=== PATIENT | female | born 1930 | race Caucasian/White ===

== ENCOUNTER → 2016-09-19 | Outpatient (CLI) | payer OTHER ==
[2016-09-19 09:58] LABS: BLOOD UREA NITROGEN 23 mg/dl (7-18); BUN/CREATININE RATIO 32.4 (10-20); CALCIUM 9.1 mg/dl (8.5-10.1); CARBON DIOXIDE 28 mmol/L (21-32); CHLORIDE 105 mmol/L (98-107); CREATININE 0.72 mg/dl (0.60-1.20); GLUCOSE 207 mg/dl (70-99); POTASSIUM 4.3 mmol/L (3.5-5.1); SODIUM 143 mmol/L (136-145)
[2016-09-19 10:25] LABS: ESTIMATED AVERAGE GLUCOSE 214 mg/dl; HA1C FLAG Normal (Normal)
--- NOTE | 2016-09-20 20:52 | CODING QUERY NO DIAGNOSIS ---
TREATMENT RENDERED WITHOUT A DIAGNOSIS 30 To promote full compliance with coding requirements relating to patient care, physician participation is requested in all cases of plant care worker uncertainty. Please assist us with providing a diagnosis/symptom for the test(s) below: A diagnosis/symptom was not documented on your Order. A valid diagnosis/symptom is required to bill all insurances. Please remember that we are unable to code a diagnosis of rule out, probable, possible, questionable, or suspected. DOS 09/19/16 Tests that require a diagnosis: * HEMOGLOBIN A1C DIAGNOSIS: * PARTIAL RENAL PROFILE DIAGNOSIS: *ON YOUR ORDER YOU HAVE DX CODE E11, THAT IS AN INVALID CODE, CAN YOU PLEASE ADD CORRECT DX CODE Provider Signature: Date: Thank you Enriqueta [facility] Information Management Once completed, please kindly fax back to [phone] For questions please call [phone]
== END ==
LOC: C.LABUPHEI 08:53
PROVIDERS: ATTEND Family Medicine
DX: E11.9 Type 2 diabetes mellitus without complications (principal); F02.81 Dementia in other diseases classified elsewhere, unspecified severity, with behavioral disturbance

== ENCOUNTER → 2016-11-12 | Outpatient (CLI) | payer OTHER ==
[2016-11-12 10:37] LABS: HEMATOCRIT 38.3 % (37-47); MEAN CELL VOLUME 92.3 fL (80-100); MEAN CORPUSCULAR HEMOGLOBIN 29.4 pg (25-34); MEAN CORPUSCULAR HGB CONC 31.9 g/dl (32-36); MEAN PLATELET VOLUME 12.1 fL (7.4-10.4); PLATELET COUNT 160 K/uL (130-400); RED BLOOD COUNT 4.15 M/uL (4.2-5.4)
[2016-11-12 10:53] LABS: ESTIMATED AVERAGE GLUCOSE 212 mg/dl; HA1C FLAG Normal (Normal)
[2016-11-12 11:20] LABS: ALB/GLOB RATIO 0.8 (0.9-2); ALT/SGPT 26 U/L (12-78); AST/SGOT 20 U/L (15-37); BLOOD UREA NITROGEN 25 mg/dl (7-18); BUN/CREATININE RATIO 28.5 (10-20); CARBON DIOXIDE 28 mmol/L (21-32); CHLORIDE 107 mmol/L (98-107); CREATININE 0.88 mg/dl (0.60-1.20); GLUCOSE 183 mg/dl (70-99); SODIUM 142 mmol/L (136-145)
[2016-11-12 11:34] LABS: ALKALINE PHOSPHATASE 66 U/L (45-117)
== END ==
LOC: C.LABUPHEI 10:20
PROVIDERS: ATTEND Family Medicine
DX: E11.9 Type 2 diabetes mellitus without complications (principal); I87.309 Chronic venous hypertension (idiopathic) without complications of unspecified lower extremity

== ENCOUNTER → 2016-12-13 | Outpatient (CLI) | payer OTHER ==
[2016-12-13 10:32] LABS: BLOOD UREA NITROGEN 21 mg/dl (7-18); BUN/CREATININE RATIO 21.9 (10-20); CARBON DIOXIDE 30 mmol/L (21-32); CHLORIDE 106 mmol/L (98-107); CREATININE 0.97 mg/dl (0.60-1.20); GLUCOSE 196 mg/dl (70-99); POTASSIUM 4.1 mmol/L (3.5-5.1); SODIUM 143 mmol/L (136-145)
[2016-12-13 10:34] LABS: CALCIUM 9.5 mg/dl (8.5-10.1)
== END ==
LOC: C.LABUPHEI 09:18
PROVIDERS: ATTEND Nurse Practitioner Family
DX: E11.9 Type 2 diabetes mellitus without complications (principal)

== ENCOUNTER → 2017-02-12 | Outpatient (CLI) | payer OTHER ==
[2017-02-12 10:02] LABS: ESTIMATED AVERAGE GLUCOSE 183 mg/dl; HA1C FLAG Normal (Normal)
[2017-02-12 10:03] LABS: ALT/SGPT 29 U/L (12-78); BLOOD UREA NITROGEN 24 mg/dl (7-18); BUN/CREATININE RATIO 25.3 (10-20); CALCIUM 9.3 mg/dl (8.5-10.1); CARBON DIOXIDE 32 mmol/L (21-32); CHLORIDE 106 mmol/L (98-107); CREATININE 0.95 mg/dl (0.60-1.20); GLUCOSE 115 mg/dl (70-99); POTASSIUM 3.9 mmol/L (3.5-5.1); SODIUM 143 mmol/L (136-145)
[2017-02-12 10:05] LABS: HEMATOCRIT 41.1 % (37-47); MEAN CELL VOLUME 91.9 fL (80-100); MEAN CORPUSCULAR HEMOGLOBIN 29.1 pg (25-34); MEAN CORPUSCULAR HGB CONC 31.6 g/dl (32-36); MEAN PLATELET VOLUME 11.7 fL (7.4-10.4); PLATELET COUNT 156 K/uL (130-400); RED BLOOD COUNT 4.47 M/uL (4.2-5.4); WHITE BLOOD COUNT 8.51 K/uL (4.8-10.8)
[2017-02-12 10:06] LABS: ALB/GLOB RATIO 0.9 (0.9-2); ALKALINE PHOSPHATASE 67 U/L (45-117); AST/SGOT 31 U/L (15-37)
[2017-02-12 11:18] LABS: BASO % 0.2 %; BASO ABS # 0.02 K/uL (0-0.2); COMPLETE YES; EOS % 3.3 %; IG% 0.1 %; LYMPH % 53.9 %; LYMPH ABS # 4.59 K/uL (1.2-3.4); MONO % 6.6 %; NEUT % 35.9 %
== END | disposition home or self-care (01) ==
LOC: C.LABUPHEI 08:50
PROVIDERS: ATTEND Family Medicine
DX: E11.9 Type 2 diabetes mellitus without complications (principal)

== ENCOUNTER → 2017-04-13 | Outpatient (CLI) | payer OTHER | LOC: C.LABUPHEI 09:13 | PROVIDERS: ATTEND Nurse Practitioner Family | DX: E11.9 Type 2 diabetes mellitus without complications (principal) ==

== ENCOUNTER → 2017-05-02 | Outpatient (CLI) | payer OTHER ==
[2017-05-02 14:33] LABS: ESTIMATED AVERAGE GLUCOSE 148 mg/dl; HA1C FLAG Normal (Normal)
== END | disposition home or self-care (01) ==
LOC: C.LABUPHEI 09:01
PROVIDERS: ATTEND Nurse Practitioner Family
DX: E11.9 Type 2 diabetes mellitus without complications (principal)

== ENCOUNTER 2018-07-12 15:52 | Inpatient (IN) ==
[2018-07-12] MEDS ORDERED: MoRPHine SULFATE 2 MG/ML CARP IV PRN ×2 (16:02→19:45)
[2018-07-12] MEDS ORDERED: SODIUM CHLORIDE 0.9% 1000ML 1,000 ML IV SCH (16:15)
--- NOTE | 2018-07-12 16:15 | Emergency Department Note ---
Entered by Kyra Howell acting as a scribe for History of Present Illness General Chief complaint: Fall Time Seen by Provider: 07/12/18 15:55 Source: patient History of Present Illness Onset (ago): hour(s) (today ) Location: lower extremity and left Pain Consistency: + now resolved and + other (episode) Quality: + other (fall) Associated symptoms: + other (negative pain in left leg) The patient is a 88 year old female who presents to the Emergency Room with complaints of a fall that occurred today. The patient states that she did not hit her head. Per EMS, the patient was hit by a door and fell to the floor, landing on her left leg. Per EMS, the patient got an X-ray that showed a fracture of the left femur. The patient denies any pain in her left leg. Per EMS , the patient is a resident at [facility]. The patient's history is limited secondary to mental state. Home Medications Home Medications Medication Instructions Recorded Confirmed Type acetaminophen 325 mg PO Q6H PRN 07/12/18 07/12/18 History divalproex [Depakote Sprinkles] 250 mg PO DAILY 07/12/18 07/12/18 History glimepiride [Amaryl] 2 mg PO QAM 07/12/18 07/12/18 History Allergies Allergy/AdvReac Type Severity Reaction Status Date / Time No Known Allergies Allergy Unverified 07/12/18 16:26 Past Med/Surg History Medical History Dementia Family History Other No significant family history Social History Feels Safe at Home: Yes Smoking Status: Unknown if ever smoked Review of Systems See HPI for pertinent positives & negatives. The patient's history/ros was limited secondary to mental state. Physical Exam Vital Signs Vital Signs - 24 hr 07/12/18 16:07 Temperature 37.1 C Temperature Source Oral Sepsis Recent Fever Within 48 Hours No Sepsis New/Unexplained Change in Mental Status No Sepsis Action Taken by Nursing No Action Required Pulse Rate 86 Respiratory Rate 18 Blood Pressure 179/85 H Blood Pressure Mean 116 Blood Pressure Position Lying Pulse Oximetry 96 Oxygen Delivery Method Room Air GENERAL: Patient is in no acute distress. HEENT: No acute trauma, normocephalic atraumatic, mucous membranes moist, no nasal congestion, no scleral icterus. No scalp hematoma. NECK: No stridor, no adenopathy, no meningismus, trachea is midline. No cervical spine tenderness. LUNGS: Clear to auscultation bilaterally, no wheeze, no rhonchi, breath sounds equal. HEART: Without murmurs gallops or rubs, regular rate and rhythm. ABDOMEN: Soft, nontender, bowel sounds positive, no hernias, no peritonitis. EXTREMITIES: Edema to the bilateral lower extremities. Left lower extremity is externally rotated and shortened. Pain with palpation and movement of the left hip. No evidence for neurovascular compromise. NEUROLOGIC: No focal motor deficits. Awake and alert. Confusion noted. Course 1556: Past medical records reviewed. The patient was evaluated in room C5, and a complete history and physical examination were performed. 1738: I checked on the patient and she does not seem to be in pain. 1754: I discussed the case with Karli Arriaga PA-C who will further evaluate the patient. Consultations Consultation #1: I discussed the case with Karli Arriaga PA-C who will further evaluate the patient. Time: 17:54 Administered Medications Sodium Chloride (Nss 1000ml) 1,000 mls @ 150 mls/hr IV .[id number] QUANG Stop: 07/12/18 22:54 Last Admin: 07/12/18 17:23 Dose: 150 mls/hr Medical Decision Making Differential Diagnosis Differential Diagnoses: Hip fracture, femur fracture, pelvis fracture, chest or abdominal trauma, head trauma, cervical spine injury, contusion, and others were considered. Medical Records Attestation: I reviewed the patient's medical records. Home Medications Current Medication List: was personally reviewed by me Laboratory Data Attestation: I reviewed the patient's lab results. Result diagrams: 07/12/18 16:47 07/12/18 16:47 Lab Results 07/12/18 07/12/18 07/12/18 Range/Units 16:47 16:47 16:47 WBC 11.95 H (4.8-10.8) K/uL RBC 4.38 (4.2-5.4) M/uL Hgb 13.2 (12.0-16.0) g/dL Hct 40.8 (37-47) % MCV 93.2 (80-100) fL MCH 30.1 (25-34) pg MCHC 32.4 (32-36) g/dL RDW Std Deviation 45.0 (36.4-46.3) fL RDW Coeff of Elizabeth 13.2 (11.5-14.5) % Plt Count 143 (130-400) K/uL MPV 12.4 H (7.4-10.4) fL Immature Gran % (Auto) 0.3 % Neut % (Auto) 81.3 % Lymph % (Auto) 14.3 % [place] % (Auto) 3.8 % Eos % (Auto) 0.2 % Baso % (Auto) 0.1 % Immature Gran # (Auto) 0.03 H (0.00-0.02) K/uL Neut # (Auto) 9.73 H (1.4-6.5) K/uL Lymph # (Auto) 1.71 (1.2-3.4) K/uL [place] # (Auto) 0.45 (0.11-0.59) K/uL Eos # (Auto) 0.02 (0-0.5) K/uL Baso # (Auto) 0.01 (0-0.2) K/uL PT 9.8 (9.0-12.0) Seconds INR 1.0 (0.9-1.1) APTT 24.8 (21.0-31.0) Seconds PTT Ratio 1.0 Sodium 139 (136-145) mmol/L Potassium 4.4 (3.5-5.1) mmol/L Chloride 104 (98-107) mmol/L Carbon Dioxide 30 (21-32) mmol/L Anion Gap 5.0 (3-11) BUN 30 H (7-18) mg/dl Creatinine 0.91 (0.6-1.2) mg/dl Est Cr Clr Drug Dosing 42.4 ml/min Est GFR ( Amer) 65.3 Est GFR (Non-Af Amer) 56.3 BUN/Creatinine Ratio 32.8 H (10-20) Glucose 167 H (70-99) mg/dl Calcium 9.0 (8.5-10.1) mg/dl Blood Type Antibody Screen 07/12/18 Range/Units 16:50 WBC (4.8-10.8) K/uL RBC (4.2-5.4) M/uL Hgb (12.0-16.0) g/dL Hct (37-47) % MCV (80-100) fL MCH (25-34) pg MCHC (32-36) g/dL RDW Std Deviation (36.4-46.3) fL RDW Coeff of Elizabeth (11.5-14.5) % Plt Count (130-400) K/uL MPV (7.4-10.4) fL Immature Gran % (Auto) % Neut % (Auto) % Lymph % (Auto) % [place] % (Auto) % Eos % (Auto) % Baso % (Auto) % Immature Gran # (Auto) (0.00-0.02) K/uL Neut # (Auto) (1.4-6.5) K/uL Lymph # (Auto) (1.2-3.4) K/uL [place] # (Auto) (0.11-0.59) K/uL Eos # (Auto) (0-0.5) K/uL Baso # (Auto) (0-0.2) K/uL PT (9.0-12.0) Seconds INR (0.9-1.1) APTT (21.0-31.0) Seconds PTT Ratio Sodium (136-145) mmol/L Potassium (3.5-5.1) mmol/L Chloride (98-107) mmol/L Carbon Dioxide (21-32) mmol/L Anion Gap (3-11) BUN (7-18) mg/dl Creatinine (0.6-1.2) mg/dl Est Cr Clr Drug Dosing ml/min Est GFR ( Amer) Est GFR (Non-Af Amer) BUN/Creatinine Ratio (10-20) Glucose (70-99) mg/dl Calcium (8.5-10.1) mg/dl Blood Type O Positive Antibody Screen NEGATIVE Imaging Data Radiologist's Impression: Radiology results as stated below per my review and the radiologist's interpretation: XR chest 1V portable CLINICAL HISTORY: 88 years-old Female presenting with fall, hip fx. TECHNIQUE: Portable semiupright AP view of the chest was obtained. COMPARISON: None. FINDINGS: Surgical clips noted in the right axilla. Atherosclerosis of the aortic arch. Top normal cardiac size. Mitral annular calcification may be present. Coarsened lung markings. Mild pulmonary vessel prominence. Minimal basilar opacities. No pleural effusion or pneumothorax. Degenerative changes of the thoracic spine. Upper abdomen normal. IMPRESSION: 1. Minimal basilar opacities likely atelectasis or scarring. No convincing evidence of acute cardiopulmonary disease. Electronically signed by: Ollie White M.D. 07/12/2018 5:16 PM XR hip LT 2-3V w pelvis CLINICAL HISTORY: 88 years-old Female presenting with fall, hip pain. TECHNIQUE: Single frontal view of the pelvis and frontal and crosstable lateral views of the left hip were obtained. COMPARISON: None. FINDINGS: Subcapital fracture of the left femoral neck with comminution and significant proximal displacement of the distal fracture fragment. There is also significant anterior displacement of the distal fracture fragment. The left femoral head remains congruent in the acetabulum. Sacral iliac joints, pubic symphysis, and right hip joint congruent. Degenerative changes of the lower lumbar spine. Bony pelvis intact though osteopenia is suspected. Right femoral neck grossly intact. No advanced degenerative changes of the hips. IMPRESSION: Foreshortened and comminuted subcapital fracture of the left femoral neck. Electronically signed by: Ollie White M.D. 07/12/2018 5:18 PM ECG Data Attestation: I personally reviewed and interpreted this ECG as follows: Indication: other (fall) Rate (beats per minute): 77 Rhythm: sinus rhythm Findings: + PVC; no ST elevation Blood Pressure Blood Pressure Findings: Elevated blood pressure Blood Pressure Disposition: further management by hospitalist NAMITA Narrative There is a very mild leukocytosis, this could be consistent with infection or just her pain. No worrisome anemia. No significant electrolyte abnormality or kidney failure. No coagulopathy. Chest film does not show pneumonia or CHF. I do not see any evidence for rib fracture. Pelvis and left hip films show a subcapital left hip fracture, no pelvic fracture. EKG shows a sinus rhythm with PVCs, no acute ischemia. On exam, I could not find evidence clinically for injury to the head, neck, chest, abdomen or upper extremities. The patient received IV saline for hydration. She received IV morphine as needed for pain. She seems comfortable. The patient will require a hospital stay for this fracture. Orthopedics will need to be consulted. I did speak to the patient about her findings, there was no family at the bedside. I spoke with case management. The on-call hospitalist was consulted. Impression & Plan Closed fracture of left hip, Fall Discharge Plan Visit Data Chief Complaint: Fall ED Provider: Juan Antonio Hurt Discharge Problem: Closed fracture of left hip, Fall Forms Stand Alone Forms: My [facility] [address] Prescriptions Prescriptions: No Action acetaminophen 325 mg Tablet 325 mg PO Q6H PRN (Reason: Pain) RF: 0 glimepiride [Amaryl] 2 mg Tablet 2 mg PO QAM RF: 0 divalproex [Depakote Sprinkles] 125 mg Capsule, Delayed Rel Sprinkle 250 mg PO DAILY RF: 0 The scribe's documentation has been prepared under my direction and personally reviewed by me in its entirety. I confirm that the note above accurately reflects all work, treatment, procedures, and medical decision making performed by me.
[2018-07-12 17:07] LABS: Basophils # (auto) 0.01 K/uL (0-0.2); Basophils % (auto) 0.1 %; Eosinophils # (auto) 0.02 K/uL (0-0.5); Eosinophils % (auto) 0.2 %; Hematocrit (blood only) 40.8 % (37-47); Hemoglobin 13.2 g/dL (12.0-16.0); Immature Granulocytes # (auto) 0.03 K/uL (0.00-0.02); Immature Granulocytes % (auto) 0.3 %; Lymphocytes # (auto) 1.71 K/uL (1.2-3.4); Lymphocytes % (auto) 14.3 %; Mean Corpuscular Hgb Conc 32.4 g/dL (32-36); Mean Corpuscular Volume 93.2 fL (80-100); Mean Platelet Volume 12.4 fL (7.4-10.4); Monocytes # (auto) 0.45 K/uL (0.11-0.59); Monocytes % (auto) 3.8 %; Neutrophils # (auto) 9.73 K/uL (1.4-6.5); Neutrophils % (auto) 81.3 %; Platelet Count 143 K/uL (130-400); RDW Coefficient of Variation 13.2 % (11.5-14.5); Red Blood Count 4.38 M/uL (4.2-5.4); White Blood Count 11.95 K/uL (4.8-10.8)
[2018-07-12 17:16] LABS: Partial Thromboplastin Time 24.8 Seconds (21.0-31.0); Prothrombin Time 9.8 Seconds (9.0-12.0)
--- NOTE | 2018-07-12 17:17 | XRay Report ---
XR chest 1V portable CLINICAL HISTORY: 88 years-old Female presenting with fall, hip fx. TECHNIQUE: Portable semiupright AP view of the chest was obtained. COMPARISON: None. FINDINGS: Surgical clips noted in the right axilla. Atherosclerosis of the aortic arch. Top normal cardiac size . Mitral annular calcification may be present. Coarsened lung markings. Mild pulmonary vessel promine nce. Minimal basilar opacities. No pleural effusion or pneumothorax. Degenerative changes of the thor acic spine. Upper abdomen normal. IMPRESSION: 1. Minimal basilar opacities likely atelectasis or scarring. No convincing evidence of acute cardiop ulmonary disease. Electronically signed by: Ollie Whiet M.D. 07/12/2018 5:16 PM
[2018-07-12 17:19] LABS: BUN Creatinine Ratio 32.8 (10-20); Creatinine Clr Calc Pharmacy 42.4 ml/min; Est GFR (African American) 65.3; Est GFR (Non-African American) 56.3; Potassium 4.4 mmol/L (3.5-5.1)
--- NOTE | 2018-07-12 17:19 | XRay Report ---
XR hip LT 2-3V w pelvis CLINICAL HISTORY: 88 years-old Female presenting with fall, hip pain. TECHNIQUE: Single frontal view of the pelvis and frontal and crosstable lateral views of the left hip were obtained. COMPARISON: None. FINDINGS: Subcapital fracture of the left femoral neck with comminution and significant proximal displacement o f the distal fracture fragment. There is also significant anterior displacement of the distal fractur e fragment. The left femoral head remains congruent in the acetabulum. Sacral iliac joints, pubic symphysis, and right hip joint congruent. Degenerative changes of the lowe r lumbar spine. Bony pelvis intact though osteopenia is suspected. Right femoral neck grossly intact. No advanced degenerative changes of the hips. IMPRESSION: Foreshortened and comminuted subcapital fracture of the left femoral neck. Electronically signed by: Ollie White M.D. 07/12/2018 5:18 PM
[2018-07-12 18:39] LABS: Appearance Urine Turbid (Clear); Bacteria Urine Automated Negative (Negative); Bilirubin Urine Negative (Negative); Cast Urine Automated 0 /lpf (0-5); Color Urine Yellow; Glucose Urine UA Negative (Negative); Ketones Urine Trace (Negative); Leukocyte Esterase Urine Negative (Negative); Nitrite Urine Negative (Negative); Protein Urine Negative (Negative); Urobilinogen Urine Negative (Negative); WBC Urine Automated 0 /hpf (0-5); pH Urine 7.5 (4.5-7.5)
--- NOTE | 2018-07-12 18:58 | History & Physical Report ---
Date of Service July 12, 2018 Assessment & Plan (1) Closed fracture of left hip: This is an 88-year-old female with a PMH of dementia and type 2 diabetes who presents from [facility] after a fall this afternoon and was found to have a left femoral neck fracture. -Minimal pain. Scheduled IV Tylenol and IV morphine as needed -Left hip/pelvis XR with foreshortened and comminuted subcapital fracture of the left femoral neck -Walks with a walker at baseline -Keep n.p.o. overnight with maintenance fluids -Preop antibiotics, bedrest, repositioning and tai catheter ordered per geriatric hip protocol -EKG with sinus rhythm with PVCs, LAD. No acute ST changes. Chest x-ray without any acute cardiopulmonary changes -Patient denies cardiac history, but is an unreliable historian. Order 2D echo (none on record) -Consults for orthopedics and anesthesia placed (2) Fall: (3) Type 2 diabetes mellitus: No recent A1c. Ordered. -Hold home glimepiride -Sliding scale insulin if needed but will be n.p.o. overnight -BSG checks before meals and at bedtime (4) Dementia: Significant baseline of dementia. Oriented to self only -Continue Depakote Sprinkles DVT Ppx: SCDs Code status: DNR per POLST form sent by [facility] PCP: Adria Dispo: Admitted to med/surg. Discharge planning ordered. Patient seen in collaboration with Dr. Zapata. Please see addendum. History of Present Illness Chief Complaint: Hip fracture Primary Care Provider: Javier Covington This is an 88-year-old female with a PMH of dementia and type 2 diabetes who presents from [facility] after a fall this afternoon. Patient was reportedly walking to bathroom with a walker when a door shut on her and she fell onto her left side. Denies any head trauma. There was concern for hip fracture so patient was sent to ED for further evaluation. Left hip/pelvis x-ray reveals Foreshortened and comminuted subcapital fracture of the left femoral neck. Patient has minimal pain. Presence of dementia, so HPI and ROS are limited. The only daily medications patient is on are glimepiride for diabetes and Depakote sprinkles for dementia. Denies any history of cardiovascular disease. Reports history of neck surgery. No former admissions at [facility]. Is followed by Dr. Covignton at [facility]. Patient is a DNR per POLST form. Denies fever, chills, headache, chest pain, shortness of breath, abdominal pain, dysuria, diarrhea or constipation. Allergies Allergy/AdvReac Type Severity Reaction Status Date / Time No Known Allergies Allergy Unverified 07/12/18 16:26 Home Medications Home Medications Medication Instructions Recorded Confirmed Type acetaminophen 325 mg PO Q6H PRN 07/12/18 07/12/18 History divalproex [Depakote Sprinkles] 250 mg PO DAILY 07/12/18 07/12/18 History glimepiride [Amaryl] 2 mg PO QAM 07/12/18 07/12/18 History Past Med/Surg History Medical History Dementia (Chronic) Type 2 diabetes mellitus (Chronic) Dementia Surgical History History of neck surgery (Resolved) Family History Other No significant family history Social History Current Living Situation: Retirement Other Information That Helps Us Care for You: No Feels Safe at Home: Declines to Answer Smoking Status: Unknown if ever smoked Hx Alcohol Use: No Hx Substance Use: No Beliefs That Will Affect Care: None Communication Ability: Impaired Review of Systems All systems reviewed & are unremarkable except as noted in HPI & below Physical Exam 2 Vital Signs (Past 24 Hours): Last Vital Signs Temp 37.1 C 07/12/18 16:07 Pulse 99 H 07/12/18 18:40 Resp 18 07/12/18 18:40 BP 162/88 H 07/12/18 18:40 Pulse Ox 98 07/12/18 18:40 Physical Exam: General Appearance: WD/WN, no apparent distress. Pleasantly confused Head: normocephalic, atraumatic Eyes: normal inspection, PERRL, EOMI ENT: hearing grossly normal, pharynx normal (moist mucous membranes) Neck: supple, no JVD, no adenopathy Respiratory/Chest: lungs clear to auscultation. No wheezes, rales or rhonci. No respiratory distress or accessory muscle use Cardiovascular: regular rate, rhythm, no murmur, normal peripheral pulses Abdomen/GI: normal bowel sounds, soft, non-tender to palpation Extremities/Musculoskelatal: Left lower extremity is externally rotated and shortened. Pain with palpation and movement of the left hip. Left sided distal pulses are intact. No calf tenderness, normal capillary refill, 1+ BLE pitting edema Neurologic/Psych: alert, normal mood/affect, oriented x person only Skin: normal color, warm/dry Results & Data Laboratory Results Short CBC 07/12/18 Range/Units 16:47 WBC 11.95 H (4.8-10.8) K/uL Hgb 13.2 (12.0-16.0) g/dL Hct 40.8 (37-47) % Plt Count 143 (130-400) K/uL BMP 07/12/18 16:47 Sodium 139 Potassium 4.4 Chloride 104 Carbon Dioxide 30 BUN 30 H Creatinine 0.91 Glucose 167 H Calcium 9.0 Urine 07/12/18 Range/Units 18:25 Urine Color Yellow Urine Appearance Turbid H (Clear) Urine pH 7.5 (4.5-7.5) Ur Specific [place] 1.020 (1.000-1.030) Urine Protein Negative (Negative) Urine Glucose (UA) Negative (Negative) Diagnostic Findings CXR: IMPRESSION: 1. Minimal basilar opacities likely atelectasis or scarring. No convincing evidence of acute cardiopulmonary disease. L hip/pelvis XR: IMPRESSION: Foreshortened and comminuted subcapital fracture of the left femoral neck. Code Status & VTE Plan Code Status DNR per POLST form VTE Prophylaxis Plan VTE Prophylaxis will be ordered: Yes Supervising Physician Co-Signing Physician Notes Pt was seen and examined. Agreed with Karli GARCIA exam, assessment and Plan. 88- year-old female with a PMH of dementia and type 2 diabetes was sent from [facility] after a fall. Pelvis xray showed Foreshortened and comminuted subcapital fracture of the left femoral neck. Currently pt denies any pain. Will get a routine echo. Surgery consult and keep NPO after midnight for possible surgery in am. MD Jodi _ (1) Fall Encounter type: initial encounter Qualified Code(s): W19.XXXA - Unspecified fall, initial encounter (2) Closed fracture of left hip Encounter type: initial encounter Fracture healing: Qualified Code(s): S72.002A - Fracture of unspecified part of neck of left femur, initial encounter for closed fracture
[2018-07-12] MEDS ORDERED: BISACODYL 10 MG SUPP PR PRN (19:45)
[2018-07-12] MEDS ORDERED: ONDANSETRON INJ 2 MG/ML 2 ML VIAL IV PRN (19:45)
[2018-07-12] MEDS ORDERED: ACETAMINOPHEN 1,000 MG/100 ML VIAL IV PRN (19:45)
[2018-07-12] MEDS ORDERED: SOD PHOSPHATE/SOD BIPHOSPHATE ENEMA 132 ML BTL PR PRN (19:45)
[2018-07-12] MEDS ORDERED: MAGNESIUM HYDROXIDE SUSP 30 ML UDC PO PRN (19:45)
[2018-07-12] MEDS ORDERED: NALOXONE HCL 0.4 MG/1 ML VIAL/CARP IV PRN (19:45)
[2018-07-12] MEDS ORDERED: POLYETHYLENE (MIRALAX) 17 GM PACK PO PRN (19:45)
[2018-07-12] MEDS ORDERED: GLUCAGON FOR INJ 1 MG VIAL SQ PRN (20:24)
[2018-07-12] MEDS ORDERED: CARBOHYDRATES FOR HYPOGLYCEMIA PO PRN (20:24)
[2018-07-12] MEDS ORDERED: GLUCOSE 40% GEL 15 GM TUBE PO PRN (20:24)
[2018-07-12] MEDS ORDERED: GLUCOSE 10 TABS/TUBE PO PRN (20:24)
[2018-07-12] MEDS ORDERED: DEXTROSE 50% 50 ML SYRINGE IV PRN (20:24)
[2018-07-12] MEDS: LACTATED RINGER'S 1,000 ML IV SCH (20:49)
[2018-07-12] MEDS ORDERED: INFLUENZA ADMINISTRATION CHARGE ONE (21:00)
[2018-07-12] MEDS ORDERED: PNEUMOCOCCAL POLYSACCHARIDES 25 MCG/0.5 ML VIAL/SYR IM ONE (21:00)
[2018-07-12] MEDS ORDERED: PNEUMOCOCCAL ADMINISTRATION CHARGE ONE (21:00)
[2018-07-12] MEDS ORDERED: INFLUENZA VACCINE HIGH DOSE 65+ 0.5 ML SYR IM ONE (21:00)
[2018-07-12] MEDS: DOCUSATE SODIUM/SENNA 50/8.6MG TAB PO SCH (21:51)
[2018-07-12] MEDS: INSULIN ASPART 100 UNITS/ML 3 ML PEN SC SCH (21:52)
[2018-07-13] MEDS ORDERED: CEFAZOLIN 2000MG 2,000 MG/15 ML SYR IV SCH (06:00)
--- NOTE | 2018-07-13 09:14 | History & Physical Report ---
Date of Service July 13, 2018 Assessment & Plan (1) Fracture of femoral neck, left, closed: Plan for left hip hemiarthroplasty later today with Dr. Vicente. Consent was placed on the chart. The patient has a family member that is POA for her and the name and phone number are in the chart for Dr. Vicente to obtain consent. Pain control until the procedure. D/C planning per medicine but will probably return to SNF. History of Present Illness Chief Complaint: left hip pain after fall Primary Care Provider: Javier Covington The patient states she was hit by a door and fell onto her left side. Her history is limited secondary to her dementia. She was brought to [facility] ER where x -rays were performed and noted a left hip femoral neck fracture. She was admitted and is now being set up for surgical treatment. Allergies Allergy/AdvReac Type Severity Reaction Status Date / Time No Known Allergies Allergy Unverified 07/12/18 16:26 Home Medications Home Medications Medication Instructions Recorded Confirmed Type acetaminophen 325 mg PO Q6H PRN 07/12/18 07/12/18 History divalproex [Depakote Sprinkles] 250 mg PO DAILY 07/12/18 07/12/18 History glimepiride [Amaryl] 2 mg PO QAM 07/12/18 07/12/18 History Past Med/Surg History Medical History Dementia (Chronic) Type 2 diabetes mellitus (Chronic) Dementia Surgical History History of neck surgery (Resolved) Family History Other No significant family history Social History Current Living Situation: Care Home Other Information That Helps Us Care for You: No Feels Safe at Home: Declines to Answer Smoking Status: Unknown if ever smoked Hx Alcohol Use: No Hx Substance Use: No Beliefs That Will Affect Care: None Preferred Language: [place] Communication Ability: Effective Communication Ability Comment: history dementia,follows some commands/choice Blast Furnace 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 No ROM or strength testing performed because of known fx. NV intact LLE. Neurologic: + confused Psychiatric: Patient is alert, lying in bed. Speech is normal but appears to be confused and she is unaware of her left hip injury. Results & Data Medications Administered Lactated Ringer's (Lr) 1,000 mls @ 80 mls/hr IV .[id number] [facility] Stop: 08/11/18 19:44 Last Admin: 07/12/18 20:49 Dose: 80 mls/hr Acetaminophen (Ofirmev) 1,000 mg in 100 mls @ 400 mls/hr IV Q8H PRN; Protocol PRN Reason: Pain Stop: 08/11/18 19:44 Last Infusion: 07/13/18 00:10 Dose: 0 mls/hr Admin: 07/12/18 23:52 Dose: 400 mls/hr Insulin Aspart (Novolog Flexpen) 0 units SC ACHS [facility] Stop: 08/11/18 20:59 Last Admin: 07/12/18 21:52 Dose: Not Given Senna/Docusate Sodium (Senokot S) 2 tab PO HS [facility] Stop: 08/11/18 20:59 Last Admin: 07/12/18 21:51 Dose: 2 tab Code Status & VTE Plan VTE Prophylaxis Plan VTE Prophylaxis will be ordered: Yes
[2018-07-13] MEDS: LACTATED RINGER'S 1,000 ML IV SCH ×2 (09:42→20:55)
[2018-07-13] MEDS: DIVALPROEX SODIUM SPRINKLE 125 MG CAP PO SCH (09:43)
[2018-07-13] MEDS: INSULIN ASPART 100 UNITS/ML 3 ML PEN SC SCH ×3 (10:03→17:54)
--- NOTE | 2018-07-13 10:58 | History & Physical Bridge Note ---
Date of Service July 13, 2018 History & Physical Bridge Note I have examined the patient, reviewed the History & Physical and in the interval since the performance of the History & Physical I have noted the following changes of clinical significance: no changes noted
[2018-07-13] MEDS ORDERED: MIDAZOLAM HCL 1 MG/ML 2ML VIAL ONE (11:17)
[2018-07-13] MEDS ORDERED: fentaNYL citrate 100 MCG/2 ML VIAL ONE ×2 (11:17→12:18)
[2018-07-13] MEDS ORDERED: PROPOFOL IV EMULSION 10 MG/ML 20 ML VIAL IV ONE ×2 (11:18)
[2018-07-13] MEDS ORDERED: ONDANSETRON INJ 2 MG/ML 2 ML VIAL ONE (11:18)
[2018-07-13] MEDS ORDERED: SUCCINYLCHOLINE CHLORIDE 20 MG/ML 10 ML VIAL ONE (11:18)
--- NOTE | 2018-07-13 11:26 | Anesthesiology Consultation ---
Date of Service July 13, 2018 Assessment & Plan Chart Review Chart Review: Acceptable Risk for Surgery Consults Requested none ASA ASA4 Proposed Anesthesia Anesthesia Type: General Anesthesia Line Insertion: Arterial line Risk / Benefits Reviewed With: PT / POA / Parent / Guardian, Accepts Plan and Informed Consent Obtained NPO Date Last Intake of Fluids: 07/12/18 Time Last Intake of Fluids: 22:00 Last Intake of Fluids Comment: sip of water with pill Date Last Intake of Solids: 07/12/18 Time Last Intake of Solids: 22:00 History Surgery Operation Date: 07/13/18 09:30 Proposed Procedures p Bipolar Hip Prosthesis(Left) - Troy Vicente MD Height/Weight Height: 5 ft 4 in Weight: 75 kg Allergies Allergy/AdvReac Type Severity Reaction Status Date / Time No Known Allergies Allergy Unverified 07/12/18 16:26 Medications Home Medications Medication Instructions Recorded Confirmed Last Taken acetaminophen 325 mg PO Q6H PRN 07/12/18 07/12/18 Unknown divalproex [Depakote Sprinkles] 250 mg PO DAILY 07/12/18 07/12/18 Unknown glimepiride [Amaryl] 2 mg PO QAM 07/12/18 07/12/18 Unknown Active Medications Generic Name Dose Route Start Last Admin Trade Name Freq PRN Reason Stop Dose Admin Divalproex Sodium 250 mg 07/13/18 09:00 07/13/18 09:43 Depakote Sprinkle PO 08/12/18 08:59 250 mg DAILY QUANG Administration Lactated Ringer's 1,000 mls @ 80 mls/hr 07/12/18 19:45 07/13/18 09:42 Lr IV 08/11/18 19:44 80 mls/hr .[id number] QUANG Administration Acetaminophen 1,000 mg in 100 mls @ 400 mls/hr 07/12/18 19:45 07/13/18 00:10 Ofirmev IV 08/11/18 19:44 Infused Q8H PRN Infusion Pain Protocol Senna/Docusate Sodium 2 tab 07/12/18 21:00 07/12/18 21:51 Senokot S PO 08/11/18 20:59 2 tab HS QUANG Administration Beta Adi Beta Adi Taken Within 24 Hours: No Past Medical History Medical History Dementia (Chronic) Type 2 diabetes mellitus (Chronic) Dementia Past Family History Family History Other No significant family history Past Surgical History Surgical History History of neck surgery (Resolved) Past Anesthesia History No Hx of Anesthesia Complications and No Family Hx of Anesthesia Complications History of PONV No Motion Sickness Screening History of Motion Sickness: No Social History Smoking Status: Unknown if ever smoked Do You Dip or Chew Tobacco: No Hx Alcohol Use: No Hx Substance Use: No Exercise / Class Metabolic Activity III < 4 Walking/Shop/Light housework Physical Exam Vital Signs Last Vital Signs Temp 37.7 C H 07/13/18 07:10 Pulse 83 07/13/18 07:10 Resp 18 07/13/18 07:10 BP 145/65 H 07/13/18 07:10 Pulse Ox 94 07/13/18 07:10 ENMT Mouth: + poor dentition; not edentulous Thyromental Distance: < 3.5 Finger Breadths Mallampati Class: II Neck normal visual inspection and trachea midline; neck extension not limited Respiratory normal respiratory effort Auscultation: lungs clear to auscultation bilaterally Cardiovascular Rate/Rhythm: regular rate and regular rhythm Heart Sounds: + murmur (at apex 2/6) Vessels: no carotid bruit Neurologic + does not move all extremities Motor/Sensory: no sensory deficit Psychiatric Orientation: alert; + not oriented x 3 (dementia) Testing Electrocardiogram Date: 07/12/18 Findings: + NSR @ (at 82 w/PSVC's;LAD;?age septal SD) Chest X-Ray Date: 07/12/18 Findings: + NAD and + atherosclerosis of thoracic aorta Echocardiogram Date: 07/13/18 EF: >70 LV Function: normal RWMA: + none Other Findings: + diastolic dysfunction (Grade 2) Valvular Disease: + MS (mod.) Laboratory Results 07/12/18 16:47 07/12/18 16:47 Blood Type O Positive 07/12/18 16:50 Antibody Screen NEGATIVE 07/12/18 16:50 PT 9.8 Seconds (9.0-12.0) 07/12/18 16:47 INR 1.0 (0.9-1.1) 07/12/18 16:47 APTT 24.8 Seconds (21.0-31.0) 07/12/18 16:47 Urine Color Yellow 07/12/18 18:25 Urine Appearance Turbid (Clear) H 07/12/18 18:25 Urine pH 7.5 (4.5-7.5) 07/12/18 18:25 Ur Specific [place] 1.020 (1.000-1.030) 07/12/18 18:25 Urine Protein Negative (Negative) 07/12/18 18:25 Urine Glucose (UA) Negative (Negative) 07/12/18 18: Urine Ketones Trace (Negative) H 07/12/18 18:25 Urine Nitrite Negative (Negative) 07/12/18 18:25 Ur Leukocyte Esterase Negative (Negative) 07/12/18 18:25 Urine WBC (Auto) 0 /hpf (0-5) 07/12/18 18:25 Urine RBC (Auto) 0-4 /hpf (0-4) 07/12/18 18:25 U Hyaline Cast (Auto) 0 /lpf (0-5) 07/12/18 18:25 U Epithel Cells (Auto) 5-10 /lpf (0-5) H 07/12/18 18:25 Urine Bacteria (Auto) Negative (Negative) 07/12/18 18:25 07/13/18 09:39 POC Glucose 112 H
[2018-07-13] MEDS ORDERED: ROPIVACAINE 0.5% HCL/PF 150 MG, BUPIVACAINE 0.5% MPF 30 ML, EPINEPHrine 30MG/30ML (OR U... INFIL SCH (12:00)
[2018-07-13] MEDS ORDERED: POVIDONE-IODINE OP SOLN 30 ML BTL ONE (12:02)
[2018-07-13] MEDS ORDERED: BACITRACIN INJ 50,000 UNIT VIAL ONE (12:02)
[2018-07-13] MEDS ORDERED: NALOXONE HCL 0.4 MG/1 ML VIAL/CARP IV PRN (12:46)
[2018-07-13] MEDS ORDERED: fentaNYL citrate 100 MCG/2 ML VIAL IV PRN (12:46)
[2018-07-13] MEDS ORDERED: FLUMAZENIL 0.1 MG/1 ML 10 ML VIAL IV PRN (12:46)
[2018-07-13] MEDS ORDERED: ATROPINE SULFATE 0.1 MG/ML 5ML SYR IV PRN (12:46)
[2018-07-13] MEDS ORDERED: ONDANSETRON INJ 2 MG/ML 2 ML VIAL IV PRN (12:46)
[2018-07-13] MEDS ORDERED: ePHEDrine sulfate 50 MG/ML AMP IV PRN (12:46)
[2018-07-13] MEDS ORDERED: LABETALOL HCL IV 5 MG/ML 20ML IV PRN (12:46)
--- NOTE | 2018-07-13 14:03 | Post Operative Brief Note ---
Immediate Post Op Note v1 Date of Surgery July 13, 2018 Pre & Post Diagnosis Operation Date: 07/13/18 09:30 Pre-Op Diagnosis: Left Hip Fracture of Femoral Neck Post-Op Diagnosis: Left Hip Fracture of Femoral Neck Procedure Operation Date: 07/13/18 09:30 Actual Procedures p Left Hip Bipolar Hemiarthroplasty, Cemented(Left) - Troy Vicente MD Surgeon Troy Vicente MD Electrical Manufacturing Technician amaury devi Estimated Blood Loss 100 Findings Consistent with Post-Op Diagnosis Specimens femoral head Drains Hemovac Drain Anesthesia Type General Complications none Disposition Accompanied Patient To Recovery: No Disposition: Recovery Room Overlapping Procedure I was immediately available: during the entire case.
[2018-07-13] MEDS ORDERED: TRAMADOL HCL 50 MG TABLET PO PRN (14:28)
[2018-07-13] MEDS ORDERED: OXYCODONE HCL IR 5 MG TAB (IMMEDIATE RELEASE) PO PRN (14:28)
[2018-07-13] MEDS ORDERED: MoRPHine SULFATE 2 MG/ML CARP IV PRN (14:28)
[2018-07-13] MEDS ORDERED: SILVER SULFADIAZINE 1% CR 50 GM JAR EXT PRN (14:28)
--- NOTE | 2018-07-13 15:07 | XRay Report ---
XR hip 1V LT w pelvis CLINICAL HISTORY: Postoperative evaluation. COMPARISON: Pelvis and left hip radiographs July 12, 2018. FINDINGS: Alignment of the total left hip arthroplasty is anatomic. There is no periprosthetic fract ure or unexpected radiopaque foreign body. Drains and skin sarina are present. IMPRESSION: Expected findings following total left hip arthroplasty. Electronically signed by: Jese Mckoy M.D. 07/13/2018 3:05 PM
--- NOTE | 2018-07-13 15:19 | Anesthesiology Progress Note ---
Date of Service July 13, 2018 Anesthesia Post Procedure Vital Signs Vital Signs: Temp Pulse Pulse Pulse Resp BP BP 07/13/18 15:05 83 16 135/69 07/13/18 14:55 36.4 C L 80 16 110/63 07/13/18 14:45 84 16 147/69 H 07/13/18 14:35 79 16 157/78 H 07/13/18 14:29 36.3 C L 81 20 168/64 H 07/13/18 09:30 07/13/18 07:10 37.7 C H 83 18 07/12/18 23:02 37.3 C 91 H 16 152/66 H 07/12/18 20:09 37.5 C 84 18 160/71 H 07/12/18 19:28 122 H 20 07/12/18 18:40 99 H 18 162/88 H 07/12/18 16:07 37.1 C 86 18 179/85 H BP Pulse Ox Pulse Ox 07/13/18 15:05 94 07/13/18 14:55 95 07/13/18 14:45 100 07/13/18 14:35 100 07/13/18 14:29 100 07/13/18 09:30 94 07/13/18 07:10 145/65 H 94 07/12/18 23:02 98 07/12/18 20:09 95 07/12/18 19:28 96 07/12/18 18:40 98 07/12/18 16:07 96 Pain Intensity Left Leg: Pain Intensity: 8 Notes Mental Status: alert / awake / arousable Patient Amnestic to Procedure: Yes Nausea / Vomiting: adequately controlled Pain: adequately controlled Airway Patency, RR, SpO2: stable & adequate BP & HR: stable & adequate Hydration State: stable & adequate Anesthetic Complications: no major complications apparent
[2018-07-13] MEDS: ACETAMINOPHEN 500 MG TAB PO SCH ×2 (16:43→20:59)
[2018-07-13] MEDS ORDERED: Nursing to Pharmacy Communication ONE ×2 (16:45→23:30)
[2018-07-13] MEDS: KETOROLAC TROMETHAMINE 15 MG/ML VIAL IV SCH ×3 (16:51→22:26)
--- NOTE | 2018-07-13 19:23 | Hospitalist Progress Note ---
Date of Service July 13, 2018 Assessment & Plan (1) Closed fracture of left hip: (2) Fall: Mechanical fall Pelvis Xray showed Foreshortened and comminuted subcapital fracture of the left femoral neck. S/D day #0 Left Hip Cemented Bipolar Hemiarthroplasty performed by Dr. Vicente Monitor H/H Fall precaution Incentive spirometry PT/OT eval (3) Type 2 diabetes mellitus: Recent Hba1c 6.7 Continue holding home glimepiride Continue monitor BS (4) Dementia: Significant baseline of dementia. Oriented to self only Continue Depakote Sprinkles DVT Ppx: SCDs Code status: DNR per POLST form sent by [facility] Dispo: Will need placement for rehab Subjective Pt was seen and examined. Lying in bed with no distress with aid at bedside She had surgery done early today Denies any symptoms Physical Exam 2 Vital Signs (Past 24 Hours): Last Vital Signs Temp 36.8 C 07/13/18 18:23 Pulse 70 07/13/18 18:23 Resp 22 07/13/18 18:23 BP 117/71 07/13/18 18:23 Pulse Ox 92 07/13/18 18:23 Physical Exam: General- No acute distress Head- atraumatic Eyes- PERRL, EOMI, ENT- oropharynx clear Neck- supple, no JVD Lungs- clear to auscultation Heart- regular rhythm; no murmur Abdomen- normal bowel sounds, soft, nontender Extremities- no calf tenderness Neuro- alert, oriented, PERRL, EOMI; no facial palsy Skin- warm & dry _ (1) Fall Encounter type: initial encounter Qualified Code(s): W19.XXXA - Unspecified fall, initial encounter (2) Closed fracture of left hip Encounter type: initial encounter Fracture healing: Qualified Code(s): S72.002A - Fracture of unspecified part of neck of left femur, initial encounter for closed fracture
[2018-07-13] MEDS: CEFAZOLIN 2000MG 2,000 MG/15 ML SYR IV SCH (19:42)
[2018-07-13] MEDS: DOCUSATE SODIUM/SENNA 50/8.6MG TAB PO SCH (20:58)
[2018-07-13] MEDS: ASPIRIN 81 MG CHEW PO SCH (21:03)
--- NOTE | 2018-07-13 21:39 | Operative Report ---
DATE OF OPERATION: 07/13/2018 INDICATION FOR PROCEDURE: The patient is an 88-year-old female who suffered a displaced comminuted femoral neck fracture, Garden IV type variety. She does have enough calcar to perform a primary stem. The patient is demented and we had to get consent from her power of urology surgeon, her nephew, Tonny Haley. PREOPERATIVE DIAGNOSIS: Displaced left femoral neck fracture. POSTOPERATIVE DIAGNOSIS: Same. PROCEDURE: Cemented bipolar hemiarthroplasty, left hip. SURGEON: Troy Vicente MD INVENTORY WORKER: Lane Lopez PA-C ANESTHESIA: General. ESTIMATED BLOOD LOSS: 100 mL. DRAINS: Hemovac drains 2. SPECIMENS: Femoral head. COMPLICATIONS: None. OPERATIVE PROCEDURE: The patient was taken to the operating room and anesthetized under general anesthetic. She was placed supine on the operating room table. A sacral pad was placed under her pelvis. We put a kidney rest up underneath the sacral pad for support. A towel was placed to support her lumbar spine. A left foot bump was placed to flex the knee 90 degrees and hip 60 degrees. The bed was placed in Trendelenburg to help drain the pelvis veins, tilted to the right to expose the left hip. Her hip exam demonstrated her leg was short and externally rotated, clearly consistent with a fracture. She has some peripheral edema of both of her legs, about the same. Circulation otherwise intact. The left hip was sterilely prepped and draped in the usual sterile fashion. A lateral Ng-type approach was performed to the left hip. Skin was incised sharply, subcutaneous flaps were elevated. A moderately deep layer of fat was divided down to the fascia. The fascia mae was divided longitudinally and the gluteus rosalia fascia was split proximally. The trochanteric bursa was resected. There was some bruising and some old blood consistent with impaction on the greater trochanter during the fall. Trochanter was intact. The gluteus medius was noted to be intact. Gluteus medius was split between its anterior 40% and posterior 60%. It was reflected off the minimus. The minimus was divided and reflected off the capsule. The capsule was divided and a muscular capsular flap was elevated off the anterior hip. A curvilinear incision was made through the gluteus medius and the upper 2-3 cm of the vastus lateralis was split longitudinally and the muscular capsular flap was elevated to expose the fracture. It was a comminuted neck fracture, mainly posterior with comminuted fracture fragments. I made a femoral neck cut 15 mm proximal to the lesser trochanter. This was made in neutral anteversion. The neck fracture fragments were removed. A corkscrew was used to place into the femoral neck and head. The head was removed. Ligamentum teres was removed. The acetabulum was in good condition. The femoral neck cut made was above just one tiny small area of posterior comminution which was only a few millimeters deep and no further cracks extending distally. After copious irrigation, the femur was exposed with flexion and external rotation. Retractors were placed. I used the MAPPING Accolade cemented hip system. The box osteotome was used followed by the canal reamer, followed by sequential broaches up to a 4, which had satisfactory fit and fill. We did a trial reduction and there was satisfactory jehovah's witness of equal leg lengths and stability through full range of motion. The trial reduction was very stable. This was then redislocated, trials removed, the canal irrigated. A cement restrictor placed distal at the level of the cementing and then after irrigation we placed a tampon in place. Then, the final stem was cemented with Palacos cement. It was a 132-degree neck angle size 4 Accolade C cemented hip stem. We did put a centralizer on the stem, which was a medium 12 mm. After the canal was dried, the stem was cemented in position, held until the cement cured, and then we went ahead and placed on the 26 mm +0 V40 femoral head which was impacted onto the Cabrera taper. The 49 mm diameter head which matched the diameter measured of her femoral head by 26 mm in diameter was then placed and snapped on to the +0 neck, checked for stability and then we reduced this to the acetabulum, verified stability, full range of motion and good soft tissue tension identified. Then we irrigated out the joint with antibiotic solution. We also used a Betadine soak for about 3 minutes while we placed the drains which were brought out laterally. Two drains were placed deep into the joint and then the capsule was repaired with sdvlql-hv-[id number] #1 Vicryl sutures. The minimus was repaired with vbyzmi-kn-mpnel #1 Vicryl sutures. The gluteus medius was repaired with transosseous #5 FiberWire sutures. The minimus was repaired with transosseous #5 FiberWire sutures using Hardeep-Maycol suture technique to tie the FiberWire sutures. Then, the further lateral row soft tissue fixation with sjbujg-ea-icbbn #2 FiberWire was placed in the medius and then the split in the medius was closed with mfkilz-zx-pyoyd #1 Vicryl sutures, split in the vastus lateralis with tarmeg-yl-fyfij #1 Vicryl sutures. The fascia mae was closed with llkgtb-yb-bdkyw #1 Vicryl sutures. Subcutaneous tissue was closed with large #2 Vicryls to close the space, 2-0 Vicryls for subcutaneous tissues, and then sarina on the skin and Silverlon dressing. Drains were placed into a Hemovac. The patient had 100 mL of blood loss. She tolerated the procedure well. Lane Lopez was my first assist. He functioned as first assist throughout the entire procedure. He assisted in retraction, leg positioning, leg traction and he assisted and performed the final closure of the fascia mae, subcutaneous skin, dressing change. We will participate in postoperative care of the patient. I attest to the content of the Intraoperative Record and any orders documented therein. Any exception s are noted below.
[2018-07-14] MEDS: LACTATED RINGER'S 1,000 ML IV SCH ×2 (01:16→13:40)
[2018-07-14] MEDS: KETOROLAC TROMETHAMINE 15 MG/ML VIAL IV SCH ×2 (03:56→08:26)
[2018-07-14] MEDS: CEFAZOLIN 2000MG 2,000 MG/15 ML SYR IV SCH (04:03)
[2018-07-14 06:00] LABS: Estimated Average Glucose 146 mg/dl
[2018-07-14] MEDS: ACETAMINOPHEN 500 MG TAB PO SCH ×4 (06:08→21:27)
[2018-07-14 06:58] LABS: Hematocrit (blood only) 35.6 % (37-47); Hemoglobin 11.4 g/dL (12.0-16.0); Mean Corpuscular Volume 93.4 fL (80-100); Mean Platelet Volume 12.3 fL (7.4-10.4); Platelet Count 112 K/uL (130-400); RDW Coefficient of Variation 13.6 % (11.5-14.5); RDW Standard Deviation 46.3 fL (36.4-46.3); Red Blood Count 3.81 M/uL (4.2-5.4); White Blood Count 12.72 K/uL (4.8-10.8)
[2018-07-14 06:59] LABS: Basophils # (auto) 0.01 K/uL (0-0.2); Basophils % (auto) 0.1 %; Immature Granulocytes # (auto) 0.03 K/uL (0.00-0.02); Immature Granulocytes % (auto) 0.2 %; Lymphocytes # (auto) 1.66 K/uL (1.2-3.4); Lymphocytes % (auto) 13.1 %; Monocytes # (auto) 0.95 K/uL (0.11-0.59); Monocytes % (auto) 7.5 %; Neutrophils # (auto) 10.07 K/uL (1.4-6.5); Neutrophils % (auto) 79.1 %
[2018-07-14 07:01] LABS: RBC Morphology Unremarkable
[2018-07-14 07:05] LABS: Albumin Level 2.5 gm/dl (3.4-5.0); BUN Creatinine Ratio 28.3 (10-20); Calcium 8.2 mg/dl (8.5-10.1); Creatinine Clr Calc Pharmacy 44.8 ml/min; Est GFR (African American) 69.9; Est GFR (Non-African American) 60.3; Potassium 4.3 mmol/L (3.5-5.1)
[2018-07-14 07:06] LABS: Phosphorus 2.9 mg/dl (2.5-4.9)
[2018-07-14] MEDS: DIVALPROEX SODIUM SPRINKLE 125 MG CAP PO SCH (08:25)
--- NOTE | 2018-07-14 08:27 | Anesthesiology Progress Note ---
Date of Service July 14, 2018 Anesthesia Post Procedure Vital Signs Vital Signs: Temp Pulse Pulse Pulse Resp BP BP 07/14/18 06:57 36.8 C 79 14 162/75 H 07/14/18 03:44 36.9 C 77 18 146/75 H 07/14/18 01:17 75 132/76 07/13/18 23:21 36.4 C L 76 18 171/65 H 07/13/18 20:00 07/13/18 18:23 36.8 C 70 22 117/71 07/13/18 17:30 37.0 C 71 22 116/68 07/13/18 16:36 37.1 C 82 22 149/78 H 07/13/18 16:00 37.2 C 82 20 146/75 H 07/13/18 15:05 83 16 135/69 07/13/18 14:55 36.4 C L 80 16 110/63 07/13/18 14:45 84 16 147/69 H 07/13/18 14:35 79 16 157/78 H 07/13/18 14:29 36.3 C L 81 20 168/64 H 07/13/18 09:30 Pulse Ox Pulse Ox 07/14/18 06:57 96 07/14/18 03:44 93 07/14/18 01:17 07/13/18 23:21 96 07/13/18 20:00 92 07/13/18 18:23 92 07/13/18 17:30 91 07/13/18 16:36 92 07/13/18 16:00 91 91 07/13/18 15:05 94 07/13/18 14:55 95 07/13/18 14:45 100 07/13/18 14:35 100 07/13/18 14:29 100 07/13/18 09:30 94 Notes Mental Status: alert / awake / arousable and participated in evaluation Nausea / Vomiting: adequately controlled Pain: adequately controlled Airway Patency, RR, SpO2: stable & adequate BP & HR: stable & adequate Hydration State: stable & adequate
[2018-07-14] MEDS: INSULIN ASPART 100 UNITS/ML 3 ML PEN SC SCH ×4 (08:32→20:42)
[2018-07-14] MEDS: ASPIRIN 81 MG CHEW PO SCH ×3 (11:27→21:27)
--- NOTE | 2018-07-14 11:57 | Orthopedic Progress Note ---
Date of Service July 14, 2018 Assessment & Plan (1) Fracture of femoral neck, left, closed: POD #1, Left hip Bipolar Hemiarthroplasty PT/ OT DVT proph- ASA D/C planning- Rehab vs. SNF As per primary Team. Subjective POD #1, denies sob, cp, n/v. States left hip pain controlled well. Physical Exam 2 Vital Signs (Past 24 Hours): Last Vital Signs Temp 36.8 C 07/14/18 06:57 Pulse 79 07/14/18 06:57 Resp 14 07/14/18 06:57 BP 162/75 H 07/14/18 06:57 Pulse Ox 96 07/14/18 06:57 Physical Exam: Left hip incision c/d/i, no drainage, drain in tact, no calf tenderness, toes and ankle mobile. Patient alert, awake and pleasantly confused.
--- NOTE | 2018-07-14 15:42 | Hospitalist Progress Note ---
Date of Service July 14, 2018 Assessment & Plan (1) Closed fracture of left hip: (2) Fall: Mechanical fall Pelvis Xray showed Foreshortened and comminuted subcapital fracture of the left femoral neck. S/D day #1 Left Hip Cemented Bipolar Hemiarthroplasty performed by Dr. Vicente Hbg 11.4 Fall precaution Incentive spirometry PT/OT eval Pain control (3) Type 2 diabetes mellitus: Recent Hba1c 6.7 Continue holding home glimepiride Continue monitor BS (4) Dementia: Significant baseline of dementia. Oriented to self only Continue Depakote Sprinkles DVT Ppx: SCDs Code status: DNR per POLST form sent by [facility] Dispo: Will need placement for rehab Subjective Pt was seen and examined. Sitting in chair with no distress. Pt said that she feels sad because she is not going to be discharged today. She said that she does not have any pain and does not want to take anything for the pain Denies any chest pain, palpitation, dizziness and SOB Physical Exam 2 Vital Signs (Past 24 Hours): Last Vital Signs Temp 36.4 C L 07/14/18 15:08 Pulse 77 07/14/18 15:08 Resp 18 07/14/18 15:08 BP 149/70 H 07/14/18 15:08 Pulse Ox 98 07/14/18 15:08 Physical Exam: General- No acute distress Head- atraumatic Eyes- PERRL, EOMI, ENT- oropharynx clear Neck- supple, no JVD Lungs- clear to auscultation Heart- regular rhythm; no murmur Abdomen- normal bowel sounds, soft, nontender Extremities- no calf tenderness, Left hip incision with no drainage, drain in tact. Neuro- alert, oriented, PERRL, EOMI; no facial palsy Skin- warm & dry _ (1) Fall Encounter type: initial encounter Qualified Code(s): W19.XXXA - Unspecified fall, initial encounter (2) Closed fracture of left hip Encounter type: initial encounter Fracture healing: Qualified Code(s): S72.002A - Fracture of unspecified part of neck of left femur, initial encounter for closed fracture
[2018-07-14] MEDS: DOCUSATE SODIUM/SENNA 50/8.6MG TAB PO SCH ×2 (20:45→21:27)
[2018-07-15] MEDS: LACTATED RINGER'S 1,000 ML IV SCH ×3 (01:56→23:09)
[2018-07-15] MEDS: ACETAMINOPHEN 500 MG TAB PO SCH ×3 (06:16→21:08)
[2018-07-15 06:35] LABS: Hematocrit (blood only) 33.2 % (37-47); Hemoglobin 10.5 g/dL (12.0-16.0); Mean Corpuscular Hgb Conc 31.6 g/dL (32-36); Mean Corpuscular Volume 94.1 fL (80-100); Mean Platelet Volume 12.7 fL (7.4-10.4); Platelet Count 98 K/uL (130-400); RDW Coefficient of Variation 14.1 % (11.5-14.5); RDW Standard Deviation 48.2 fL (36.4-46.3); Red Blood Count 3.53 M/uL (4.2-5.4); White Blood Count 13.75 K/uL (4.8-10.8)
--- NOTE | 2018-07-15 07:04 | Orthopedic Progress Note ---
Date of Service July 15, 2018 Assessment & Plan (1) Fracture of femoral neck, left, closed: POD #2, Left hip Bipolar Hemiarthroplasty PT/ OT DVT proph- ASA D/C planning- Rehab vs. SNF As per primary Team. Subjective Hx is difficult to attain. States left hip pain controlled well. Denies pain in the hip today. Physical Exam 2 Vital Signs (Past 24 Hours): Last Vital Signs Temp 37.7 C H 07/15/18 06:50 Pulse 77 07/15/18 06:50 Resp 16 07/15/18 06:50 BP 136/81 07/15/18 06:50 Pulse Ox 96 07/15/18 06:50 Constitutional: + thin; no acute distress Musculoskeletal: Hip: + surgical incision (Left hip is located. Silverlon dressing in place. Left thigh is soft.); no skin erythema, no ecchymosis and log roll test negative Neurologic: + confused
[2018-07-15] MEDS: ASPIRIN 81 MG CHEW PO SCH ×2 (08:04→21:07)
[2018-07-15] MEDS: DIVALPROEX SODIUM SPRINKLE 125 MG CAP PO SCH (08:04)
[2018-07-15] MEDS: INSULIN ASPART 100 UNITS/ML 3 ML PEN SC SCH ×4 (08:05→21:08)
--- NOTE | 2018-07-15 17:25 | Hospitalist Progress Note ---
Date of Service July 15, 2018 Assessment & Plan (1) Closed fracture of left hip: This is an 88-year-old female with a PMH of dementia and type 2 diabetes who presents from [facility] after a fall this afternoon and was found to have a left femoral neck fracture. -Minimal pain. Scheduled IV Tylenol and IV morphine as needed -Left hip/pelvis XR with foreshortened and comminuted subcapital fracture of the left femoral neck -Walks with a walker at baseline - -EKG with sinus rhythm with PVCs, LAD. No acute ST changes. Chest x-ray without any acute cardiopulmonary changes Appreciate input from orthopedics Status post ORIF (2) Fall: Mechanical fall Pelvis Xray showed Foreshortened and comminuted subcapital fracture of the left femoral neck. S/P Left Hip Cemented Bipolar Hemiarthroplasty performed by Dr. Vicente Hbg 11.4 Fall precaution Incentive spirometry PT/OT eval Pain control (3) Type 2 diabetes mellitus: Recent Hba1c 6.7 Continue holding home glimepiride Continue monitor BS (4) Dementia: Significant baseline of dementia. Oriented to self only Continue Depakote Sprinkles DVT Ppx: per [facility] post hip replacement protocol Code status: DNR per POLST form sent by [facility] Dispo: stable to return back to [facility] Subjective Denies of any pain or discomfort, Developed urinary retention yesterday, Jones replaced We will do a voiding trial Physical Exam 2 Vital Signs (Past 24 Hours): Last Vital Signs Temp 37.3 C 07/15/18 15:05 Pulse 81 07/15/18 15:05 Resp 16 07/15/18 15:05 BP 101/62 07/15/18 15:05 Pulse Ox 96 07/15/18 15:05 _ (1) Fall Encounter type: initial encounter Qualified Code(s): W19.XXXA - Unspecified fall, initial encounter (2) Closed fracture of left hip Encounter type: initial encounter Fracture healing: Qualified Code(s): S72.002A - Fracture of unspecified part of neck of left femur, initial encounter for closed fracture
[2018-07-15] MEDS: DOCUSATE SODIUM/SENNA 50/8.6MG TAB PO SCH (21:07)
[2018-07-16] MEDS: ACETAMINOPHEN 500 MG TAB PO SCH ×4 (05:55→21:54)
[2018-07-16] MEDS: INSULIN ASPART 100 UNITS/ML 3 ML PEN SC SCH ×4 (08:23→21:46)
[2018-07-16] MEDS: DIVALPROEX SODIUM SPRINKLE 125 MG CAP PO SCH (08:24)
[2018-07-16] MEDS: ASPIRIN 81 MG CHEW PO SCH ×2 (08:24→21:50)
[2018-07-16] MEDS: LACTATED RINGER'S 1,000 ML IV SCH (12:01)
--- NOTE | 2018-07-16 16:09 | Orthopedic Progress Note ---
Date of Service July 16, 2018 Assessment & Plan (1) Fracture of femoral neck, left, closed: POD #3, Left hip Bipolar Hemiarthroplasty PT/ OT DVT proph- ASA for 1 month post op D/C planning- Rehab vs. SNF As per primary Team. Follow up with Dr. Vicente 12-14 days post op, call [phone] for appt. Subjective Hx is difficult to attain. States left hip pain controlled well. Denies pain in the hip today.POD #3. Physical Exam 2 Vital Signs (Past 24 Hours): Last Vital Signs Temp 36.8 C 07/16/18 14:46 Pulse 89 07/16/18 14:46 Resp 22 07/16/18 14:46 BP 135/75 07/16/18 14:46 Pulse Ox 94 07/16/18 14:46 Physical Exam: Left hip silverlon dressing is c/d/i, no draiange, toes and ankle mobile, no calf tenderness. Patient sleeping, was able to wake her for simple commands, but confused.
--- NOTE | 2018-07-16 16:13 | Orthopedic Consultation ---
Date of Consultation July 16, 2018 History of Present Illness Attending Physician: Day Mcfarland MD Allergies Allergy/AdvReac Type Severity Reaction Status Date / Time No Known Allergies Allergy Unverified 07/12/18 16:26 Home Medications Home Medications Medication Instructions Recorded Confirmed Type acetaminophen 325 mg PO Q6H PRN 07/12/18 07/12/18 History divalproex [Depakote Sprinkles] 250 mg PO DAILY 07/12/18 07/12/18 History glimepiride [Amaryl] 2 mg PO QAM 07/12/18 07/12/18 History aspirin 81 mg PO Q12H 30 Days #60 tab 07/17/18 Rx magnesium hydroxide [Milk of 30 ml PO DAILY PRN 30 Days #30 ml 07/17/18 Rx Magnesia] polyethylene glycol 3350 [Miralax] 17 g PO DAILY PRN 30 Days #30 ea 07/17/18 Rx sennosides-docusate sodium [Senna 2 tab PO HS 30 Days #60 tab 07/17/18 Rx with Docusate Sodium] silver sulfadiazine [SSD] 1 applic EXT BID PRN 30 Days #1 gm 07/17/18 Rx sodium phosphates [Enema 132 ml IN DAILY PRN 30 Days #30 ml 07/17/18 Rx Disposable] tramadol 50 mg PO Q4H PRN #20 tab 07/17/18 Rx Patient History Medical History Dementia (Chronic) Type 2 diabetes mellitus (Chronic) Dementia Surgical History History of neck surgery (Resolved) Family History Other No significant family history Social History Current Living Situation: Longterm Feels Safe at Home: Declines to Answer Smoking Status: Unknown if ever smoked Hx Alcohol Use: No Hx Substance Use: No Beliefs That Will Affect Care: None Preferred Language: Burkinan Visual Impairment: No Limitations Physical Exam 2 Vital Signs (Past 24 Hours): Last Vital Signs Temp 36.8 C 07/16/18 14:46 Pulse 89 07/16/18 14:46 Resp 22 07/16/18 14:46 BP 135/75 07/16/18 14:46 Pulse Ox 94 07/16/18 14:46
[2018-07-16] MEDS: DOCUSATE SODIUM/SENNA 50/8.6MG TAB PO SCH ×2 (21:48→21:55)
[2018-07-17] MEDS: LACTATED RINGER'S 1,000 ML IV SCH ×2 (00:07→13:25)
[2018-07-17] MEDS: ACETAMINOPHEN 500 MG TAB PO SCH ×2 (05:58→13:25)
[2018-07-17] MEDS: ASPIRIN 81 MG CHEW PO SCH (08:02)
[2018-07-17] MEDS: DIVALPROEX SODIUM SPRINKLE 125 MG CAP PO SCH (08:02)
[2018-07-17] MEDS: INSULIN ASPART 100 UNITS/ML 3 ML PEN SC SCH ×2 (08:04→12:44)
--- NOTE | 2018-07-17 14:18 | Hospitalist Progress Note ---
Date of Service July 17, 2018 Assessment & Plan (1) Closed fracture of left hip: This is an 88-year-old female with a PMH of dementia and type 2 diabetes who presents from [facility] after a fall ,found to have a left femoral neck fracture. -Minimal pain. Scheduled IV Tylenol and IV morphine as needed -Left hip/pelvis XR with foreshortened and comminuted subcapital fracture of the left femoral neck -Walks with a walker at baseline - -EKG with sinus rhythm with PVCs, LAD. No acute ST changes. Chest x-ray without any acute cardiopulmonary changes Appreciate input from orthopedics Status post ORIF (2) Fall: Mechanical fall Pelvis Xray showed Foreshortened and comminuted subcapital fracture of the left femoral neck. S/P Left Hip Cemented Bipolar Hemiarthroplasty performed by Dr. Vicente post op H&H remains stable appreciate input from Ortho stable to return back to [place] (3) Type 2 diabetes mellitus: Recent Hba1c 6.7 on glimepiride Continue monitor BS (4) Dementia: Significant baseline of dementia. Oriented to self only Continue Depakote Sprinkles DVT Ppx: per [place] post hip replacement protocol Code status: DNR per POLST form sent by [facility]po[facility] Subjective sitting up baseline dementia offers no complain Jones discontinued earlier able to void evaluated by Ortho stable to be transferred to rehab Physical Exam 2 Vital Signs (Past 24 Hours): Last Vital Signs Temp 36.8 C 07/17/18 13:31 Pulse 77 07/17/18 13:31 Resp 14 07/17/18 13:31 BP 122/73 07/17/18 13:31 Pulse Ox 91 07/17/18 13:31 Constitutional: WD/WN, vitals as above no acute distress Eyes: PERRL, conjunctivae normal, anicteric sclerae ENMT: external ear and nose normal, oropharynx normal Neck: trachea midline, no thyromegaly Respiratory: normal respiratory effort, lungs clear to auscultation no respiratory distress and no labored breathing Cardiovascular: RRR, no murmur, no edema Gastrointestinal (Abdomen): Inspection/Auscultation: abdomen normal to inspection; abdomen not distended Percussion/Palpation: abdomen soft; abdomen nontender Neurologic: + confused (dementia , oriented to person only ) Psychiatric: Orientation: alert and oriented to person _ (1) Fall Encounter type: initial encounter Qualified Code(s): W19.XXXA - Unspecified fall, initial encounter (2) Closed fracture of left hip Encounter type: initial encounter Fracture healing: Qualified Code(s): S72.002A - Fracture of unspecified part of neck of left femur, initial encounter for closed fracture
--- NOTE | 2018-07-17 19:13 | Discharge Summary ---
Date of Service July 17, 2018 Admission HPI Per Admitting Provider This is an 88-year-old female with a PMH of dementia and type 2 diabetes who presents from [facility] after a fall this afternoon. Patient was reportedly walking to bathroom with a walker when a door shut on her and she fell onto her left side. Denies any head trauma. There was concern for hip fracture so patient was sent to ED for further evaluation. Left hip/pelvis x-ray reveals Foreshortened and comminuted subcapital fracture of the left femoral neck. Patient has minimal pain. Presence of dementia, so HPI and ROS are limited. The only daily medications patient is on are glimepiride for diabetes and Depakote sprinkles for dementia. Denies any history of cardiovascular disease. Reports history of neck surgery. No former admissions at [facility]. Is followed by Dr. Covington at [facility]. Patient is a DNR per POLST form. Denies fever, chills, headache, chest pain, shortness of breath, abdominal pain, dysuria, diarrhea or constipation. Principal Diagnosis LEFT HIP FRACTURE , S/P HIP REPLACEMENT SURGERY Discharge Exam Constitutional WD/WN, vitals as above no acute distress Eyes PERRL, conjunctivae normal, anicteric sclerae ENMT external ear and nose normal, oropharynx normal Neck trachea midline, no thyromegaly Respiratory normal respiratory effort, lungs clear to auscultation no respiratory distress and no labored breathing Cardiovascular RRR, no murmur, no edema Gastrointestinal (Abdomen) Inspection/Auscultation: abdomen normal to inspection; abdomen not distended Percussion/Palpation: abdomen soft; abdomen nontender Neurologic + confused (dementia , oriented to person only ) Psychiatric Orientation: alert and oriented to person Discharge Data Allergies Allergy/AdvReac Type Severity Reaction Status Date / Time No Known Allergies Allergy Unverified 07/12/18 16:26 Consultations 07/12/18 17:55 ED Decision to Admit Stat 07/12/18 18:57 Consult Orthopedic Surgery Routine 07/12/18 19:45 Consult Anesthesiology Routine Consult Case Management - Discharge Planning Routine Consult Case Management - Discharge Planning Routine 07/14/18 08:00 Consult Case Management - Discharge Planning Routine Procedures Performed Operation Date: 07/13/18 09:30 Actual Procedures p Left Hip Bipolar Hemiarthroplasty, Cemented(Left) - Troy Vicente MD Hospital Course (1) Closed fracture of left hip: This is an 88-year-old female with a PMH of dementia and type 2 diabetes who presents from [facility] after a fall ,found to have a left femoral neck fracture. -Minimal pain. Scheduled IV Tylenol and IV morphine as needed -Left hip/pelvis XR with foreshortened and comminuted subcapital fracture of the left femoral neck -Walks with a walker at baseline - -EKG with sinus rhythm with PVCs, LAD. No acute ST changes. Chest x-ray without any acute cardiopulmonary changes Appreciate input from orthopedics Status post ORIF (2) Fall: Mechanical fall Pelvis Xray showed Foreshortened and comminuted subcapital fracture of the left femoral neck. S/P Left Hip Cemented Bipolar Hemiarthroplasty performed by Dr. Vicente post op H&H remains stable appreciate input from Ortho stable to return back to [place] (3) Type 2 diabetes mellitus: Recent Hba1c 6.7 on glimepiride Continue monitor BS (4) Dementia: Significant baseline of dementia. Oriented to self only Continue Depakote Sprinkles DVT Ppx: per [place] post hip replacement protocol Code status: DNR per POLST form sent by [facility] Dispo: stable to return back to [facility] Total Time Total Time Spent Total Time Spent (In Minutes): 35mins Total Time Includes: Examination of the Patient, Discharge Planning and Medication Reconciliation Discharge Plan Discharge Items Patient Disposition: Transfer [facility] Reason For Visit: FORESHORTENED AND COMMINUTED SUBCAPITAL FRACTURE Discharge Diagnosis: LEFT HIP FRACTURE , S/P HIP REPLACEMENT SURGERY Discharge Goals: Decrease discomfort, Diagnostic testing and Therapeutic intervention Activity: Per 'Additional Instructions' section Weightbearing: Left weightbearing Weightbearing Comment: as tolerated Non-emergency contact: Primary Care Provider Call non-emergency contact if: you have any medication questions Follow-up/Referrals: Troy Vicente MD [Surgeon] - (Follow up 2 weeks post op for staple removal.) Javier Covington [Primary Care Provider] - Diet: Heart Healthy Addtl Provider Instructions: ACTIVITY RECOMMENDATIONS: SELF CARE INSTRUCTIONS AFTER HIP HEMIARTHROPLASTY Until the incision and soft tissues around your hip have healed, there is a possibility that the hip prosthesis could dislocate. A. Observe the following precautions to prevent dislocation: 1. Don't bend your hip greater than 90 degrees. 2. Avoid crossing your legs or ankles while standing or lying. 3. Sit with your feet placed 6 inches apart. 4. When sitting, keep your knees below your hips. Sit on a firm surface, avoid deep, soft chairs and couches. Use an elevated toilet seat in the bathroom. 5. Don't bend over at the waist. Use a long handled shoehorn and a sock aid to help you put on your shoes and socks. A warehouse clerk can help you pickle water pump operator objects that are too high or too low to reach. 6. Keep car riding to a minimum for at least one month after surgery. B. Your balance may be shaky for a while. Use crutches or a walker until directed by your doctor. C. Use hand rails when walking on stairs. D. Wear low heeled shoes with non-slip soles. E. Be sure that your floors are free of things that could trip you - throw rugs , electrical cords, small objects. Avoid wet and waxed floors, especially with crutches and canes. F. Try to walk several times a day with rest periods between. G. Continue with all the exercises taught to you in the hospital. Again, make walking a part of your daily routine. H. It is okay to shower if minimal to no drainage from incision. No baths. Do not soak wound. I. Physical Therapy as instructed by your Physician. Christofer Yañez: You have a Silverlon dressing on the right knee incision. It will remain in place for 7 days from the day of your surgery. After 7 days, you may remove the dressing, just as you would remove a bandaid. You may shower with the Silverlon dressing in place. However, if you notice any water within the dressing, the dressing should be removed. You may cover the incision with a dry dressing once the silverlon is removed if there is any drainage. SPECIAL CARE INSTRUCTIONS: VERY IMPORTANT TO READ AND REVIEW A. You may still be at risk for phlebitis and blood clots. 1. Wear surgical stockings (CHIARA hose) for one month, 20 hours daily, after surgery to improve circulation and reduce swelling. 2. Take Aspirin (blood thinning medications), as directed by your doctor. 3. Have a pro-time (blood test) drawn according to your doctor's instructions. B. We encourage and will assist you in choosing a home-health agency of your choice. Home health nurses and therapists will monitor your temperature, wound healing and progress in exercise and walking. Home health nurses may also draw the blood for the pro-time test. They may instruct you in decreasing or increasing the amount of Coumadin you take. C. You must take antibiotics before having dental work, bladder, bowel and other surgery. Your doctor will provide you with a permanent card to carry describing precautions. D. Call [facility] if you have a temperature of 101 or greater, redness or swelling around the incision, cloudy drainage from incision , or sudden increase in pain in your hip, not relieved by your regular pain medication. E. Please call the office at if you have any concerns or questions about your operation or recovery. FOLLOW UP VISIT: If appointment is not already scheduled: Please call [facility] to make a follow-up appointment for 2 weeks after your surgery at . Prescriptions: New silver sulfadiazine [SSD] 1 % Cream 1 applic EXT BID PRN (Reason: ITCHING) 30 Days Qty: 1 RF: 0 polyethylene glycol 3350 [Miralax] 17 gram Powder In Packet 17 g PO DAILY PRN (Reason: CONSTIPATION) 30 Days Qty: 30 RF: 0 sennosides-docusate sodium [Senna with Docusate Sodium] 8.6-50 mg Tablet 2 tab PO HS 30 Days Qty: 60 RF: 0 tramadol 50 mg Tablet 50 mg PO Q4H PRN (Reason: PAIN) Qty: 20 RF: 0 magnesium hydroxide [Milk of Magnesia] 400 mg/5 mL Suspension 30 ml PO DAILY PRN (Reason: CONSTIPATION) 30 Days Qty: 30 RF: 0 sodium phosphates [Enema Disposable] 19-7 gram/118 mL Enema 132 ml MT DAILY PRN (Reason: CONSTIPATION) 30 Days Qty: 30 RF: 0 aspirin 81 mg Tablet,Chewable 81 mg PO Q12H 30 Days Qty: 60 RF: 0 Continue acetaminophen 325 mg Tablet 325 mg PO Q6H PRN (Reason: Pain) RF: 0 glimepiride [Amaryl] 2 mg Tablet 2 mg PO QAM RF: 0 divalproex [Depakote Sprinkles] 125 mg Capsule, Delayed Rel Sprinkle 250 mg PO DAILY RF: 0 Stand-Alone Forms: My [facility], Important Visit Information Discharge Orders: Discharge Order (Routine); Ordered 07/17/18 Ordered By: Day Mcfarland Skilled Items Patient informed of condition?: Yes DNR: Yes Discharge Level of Care: Skilled Communicable Disease: No Discharge Prognosis: Stable Admission Data Admit Date/Time: 07/12/18 18:50 Attending Provider: Day Mcfarland Admit Provider: Noe Zapata Primary Care Provider: Javier Covington Other Providers: Ollie Carroll ; Bernardino Jerry ; Noe Zapata Service: Medical Other Interventions: Discharge Summary Assessment (RN) Last Done: 07/17/18 13:31 DC Date/Time DO NOT enter until pt leaves facility: 07/17/18 15:07
--- NOTE | 2018-07-30 06:20 | Discharge Summary ---
This is an 88-year-old female complaining of left hip pain after a fall. She apparently was hit by a door that fell on her left side. She was limited secondary to her dementia on her history taking. She was brought to the [facility] ER where x-rays were confirmed to note a left hip femoral neck fracture. She was admitted by medicine and arranged for surgical treatment. The patient underwent a left hip bipolar hemiarthroplasty on 07/13/2018. She was followed closely with medical consultation, DVT prophylaxis in the form of aspirin, physical therapy, and pain control. The patient did well postoperatively. The patient was discharged on postoperative day #4 to a group home facility. She will continue her preadmission medications as well as aspirin for DVT prophylaxis. She will follow up as an outpatient as scheduled.
== END 2018-07-17 15:07 | DRG 470 ==
LOC: ED 15:52 → 3N 18:50 → SUATTDRO 18:50 → 3N 19:28